=== PATIENT | male | born 1990 | race African-American/Black ===

== ENCOUNTER 2020-01-11 10:41 | Emergency (ER) | payer OTHER ==
[~2020-01-11] VITALS: Ht 180.3 cm; Wt 90.7 kg
--- NOTE | 2020-01-11 11:13 | Emergency Department Note ---
History of Present Illnes History of Present Illness Chief Complaint: Abdominal cramps History of Present Illness This is a 29 year old male. was doing well prior to this. the diarrhea, abdominal cramps, nausea s/p eating seafood food Historian: Patient Arrival Mode: Car History limited by: condition of the patient (normal) Onset (how long ago): day(s) (8) Location: generalized Quality: cramps Radiation: non-radiation Severity: moderate (i max= moderate, i current= ) Onset quality: gradual Duration (how long): day(s) (8) Timing of current episode: intermittent Progression: unchanged Chronicity: new Context: recent illness, recent surgery, recent immobilization, recent travel, trauma/injury, new medications, hx of DVT/PE, non-compliance w/ medications Relieving factors: none Exacerbating factors: none Associated symptoms: nausea/vomiting Treatments prior to arrival: none Past Medical/Family History Physician Review I have reviewed the patient's past medical and family history. Any updates have been documented here. Past Medical History Recent Fever: No Clinical Suspicion of Infectio: No New/Unexplained Change in Ment: No Past Medical History: None Past Surgical History: None Social History Smoking Cessation: Former smoker Counseling Performed: No Any Illegal Drug Use: No TB Exposure/Symptoms: No Physically hurt or threatened: No Family History Family history of heart diseas: No Other Any Pre-Existing Lines (PICC,: No Is patient up to date on immun: No Review of Systems Review of Systems Constitutional: no symptoms EENTM: no symptoms Cardiovascular: no symptoms Respiratory: no symptoms Gastrointestinal: as per HPI, abdominal pain, diarrhea, nausea; constipation, vomiting Genitourinary: no symptoms Musculoskeletal: no symptoms Neurological: no symptoms Psychological: no symptoms Endocrine: no symptoms Hematological/Lymphatic: no symptoms Review of other systems All other systems reviewed and negative. Physical Exam Related Data Allergies: Coded Allergies: No Known Allergies (Unverified , 01/11/20) Triage Vital Signs Vital Signs Date Time Temp Pulse Resp B/P (MAP) Pulse Ox O2 Delivery O2 Flow Rate FiO2 01/11/20 10:48 97.8 67 16 145/95 99 Physical Exam CONSTITUTIONAL Constitutional: well-developed, well-nourished HENT HENT: normocephalic, atraumatic, oropharynx clear/moist, nose normal HENT L/R: left ext ear normal, right ext ear normal EYES Eyes: PERRL, conjunctivae normal NECK Neck: ROM normal PULMONARY Pulmonary: effort normal, breath sounds normal CARDIOVASCULAR Cardiovascular: regular rhythm, heart sounds normal, capillary refill normal, normal rate GASTROINTESTINAL Abdominal: soft, nontender, bowel sounds normal GENITOURINARY Genitourinary: exam deferred SKIN Skin: warm, dry MUSCULOSKELETAL Musculoskeletal: ROM normal NEUROLOGICAL Neurological: alert, oriented x 3, no gross motor or sensory deficits PSYCHOLOGICAL Psychological: mood/affect normal, judgement normal Critical Care Time Subsequent provider I assumed direction of critical care for this patient from another provider of my specialty. Assessment & Plan Assessment & Plan Final Impression: (1) INFECTIOUS GASTROENTERITIS AND COLITIS, UNSPECIFIED (2) OTHER SPECIFIED BACTERIAL FOODBORNE INTOXICATIONS Assessment & Plan rxed zofran, lomotil, cipro, flagyl, levsin. drink plenty of water/electrolytes. f/u with gi. +bland diet Depart Disposition: HOME, SELF-CARE Last Vital Signs Date Time Temp Pulse Resp B/P (MAP) Pulse Ox O2 Delivery O2 Flow Rate FiO2 01/11/20 10:48 97.8 67 16 145/95 99 CHRISTY HEARD January 11, 2020 11:13
== END 2020-01-11 11:30 | disposition home or self-care (01) ==
LOC: ER 10:41
DX: R10.9 Unspecified abdominal pain (principal); A05.9 Bacterial foodborne intoxication, unspecified; A09 Infectious gastroenteritis and colitis, unspecified
CPT/HCPCS: 99282

== ENCOUNTER 2020-05-26 08:38 | Emergency (ER) | payer OTHER ==
[~2020-05-26] VITALS: Ht 180.3 cm; Wt 90.7 kg
--- OUTSIDE RECORDS SUMMARY | 2020-05-26 09:23 | XMS REPORT | Continuity of Care Document ---
Author Author 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 Allergies, Adverse Reactions, Alerts This patient has no known allergies or adverse reactions. Social History Social Habit Start Date Stop Date Quantity Comments Source Sex Assigned At 1990 00:00:00 1990 00:00:00 Male [facility] Medications This patient has no known medications. Vital Signs Vital Name Observation Time Observation Value Comments Source Weight 2020-01-11 10:48:00 200 [lb_av] [facility] BMI (Body Mass Index) 2020-01-11 10:48:00 27.9 kg/m2 [facility] Procedures This patient has no known procedures. Plan of Care Planned Activity Planned Date Details Comments Source Instructions [place] Diet - Adult [facility] Instructions Food Poisoning - Adult [facility] Encounters Start Date/Time End Date/Time Encounter Type Admission Type [facility] Facility Care Department Encounter ID Source 2020-01-11 10:41:00 2020-01-11 11:30:00 Departed Emergency Room [facility] [id number] [facility] Results This patient has no known results.
--- NOTE | 2020-05-26 10:14 | Emergency Department Note ---
History of Present Illnes History of Present Illness Chief Complaint: Abdominal Complaints History of Present Illness This is a 30 year old male with cramping mid lower abd pain X 2week with > flatus and normal BM. Started probiotic on day 3 to 9 of illness which caused him to be constipated. Patient started having normal BM again after stopping probiotic. Diarrhea X 2 episodes this AM described as loose. No melena, no hematachezia. No fever, no chills. No N/V. Mild decrease in appetite. Similar symptom in February - resolved after course of Cipro and Flagyl. Has appointment for UGI and Colonoscopy in 2 weeks. No syncope or lightheadness. Historian: Patient Arrival Mode: Car Onset (how long ago): week(s) (2) Radiation: Reports non-radiation Severity: mild Onset quality: gradual Duration (how long): week(s) (2) Timing of current episode: unable to specify Progression: unable to specify Context: Denies trauma/injury Relieving factors: none Exacerbating factors: none Associated symptoms: Denies confusion, Denies chest pain, Denies cough, Denies diaphoresis, Denies fever/chills, Denies headaches, Denies nausea/vomiting, Denies shortness of breath, Denies syncope, Denies weakness Treatments prior to arrival: none Past Medical/Family History Physician Review I have reviewed the patient's past medical and family history. Any updates have been documented here. Past Medical History Recent Fever: No Clinical Suspicion of Infectio: No New/Unexplained Change in Ment: No Past Medical History: None Past Surgical History: None Social History Smoking Cessation: Current some day smoker Counseling Performed: No Alcohol Use: None Any Illegal Drug Use: No Physically hurt or threatened: No Other Any Pre-Existing Lines (PICC,: No Review of Systems Review of Systems Constitutional: Denies chills, Denies fever EENTM: Denies nose congestion, Denies throat pain Cardiovascular: Denies chest pain, Denies palpitations Respiratory: Denies cough, Denies dyspnea Gastrointestinal: Reports as per HPI, Reports abdominal pain, Reports diarrhea; Denies nausea, Denies vomiting Genitourinary: Denies dysuria, Denies hematuria Musculoskeletal: Denies back pain Integumentary: Denies rash Neurological: Denies headache Endocrine: Denies increased hunger Hematological/Lymphatic: Denies easy bruising Physical Exam Related Data Allergies: Coded Allergies: No Known Allergies (Unverified , 01/11/20) Triage Vital Signs Vital Signs Date Time Temp Pulse Resp B/P (MAP) Pulse Ox O2 Delivery O2 Flow Rate FiO2 05/26/20 08:38 98.7 65 18 150/74 100 Room Air Physical Exam CONSTITUTIONAL Constitutional: Present well-developed, Present well-nourished HENT HENT: Present normocephalic, Present atraumatic, Present mucosae dry, Present nose normal EYES Eyes: Reports PERRL, Reports conjunctivae normal NECK Neck: Present ROM normal PULMONARY Pulmonary: Present effort normal, Present breath sounds normal CARDIOVASCULAR Cardiovascular: Present regular rhythm, Present heart sounds normal, Present capillary refill normal, Present normal rate GASTROINTESTINAL No RLQ tenderness. Negative Patel's, Negative psoas, Negative Illiac Abdominal: Present soft, Present nontender, Present bowel sounds normal GENITOURINARY Genitourinary: Present exam deferred SKIN Skin: Present warm, Present dry MUSCULOSKELETAL Musculoskeletal: Present ROM normal NEUROLOGICAL Neurological: Present alert, Present oriented x 3, Present no gross motor or sensory deficits PSYCHOLOGICAL Psychological: Present mood/affect normal, Present judgement normal Results Laboratory Laboratory comments UA: Neg glu, blood neg, nit neg, le neg, pro trace, ket 15 ml/dl, SG > 1.030 Assessment & Plan Medical Decision Making MDM Patient presented with 2 episodes of diarrhea and cramping pain over suprapubic area. Considered UTI, kidney stone, pyleo, but UA negative for blood and infection. Urine concentrated. Mild dehydration on exam. Patient tolerated PO fluid in ED and did not warrant IV hydration. Similar sx in February treated with Cipro and Flagyl. Will treat today with same as symptoms in February resolved with treatment. Patient has appointment with GI in 2 weeks for scope. Gave strict return precautions. Considered diverticulitis - discharged with Cipro and Flagyl which would treat this. Considered appendicitis - no RLQ tenderness, pain X 2 weeks, no fever, no psoas, no illiac, non- surgical abdomen on exam. No indication for further appy work up at this time. Explained differential dx to patient and gave strict return precautions. Assessment & Plan Final Impression: (1) Volume depletion (2) Dehydration (3) Hypovolemia (4) INFECTIOUS GASTROENTERITIS AND COLITIS, UNSPECIFIED Depart Disposition: HOME, SELF-CARE Last Vital Signs Date Time Temp Pulse Resp B/P (MAP) Pulse Ox O2 Delivery O2 Flow Rate FiO2 05/26/20 08:38 98.7 65 18 150/74 100 Room Air CLAUDY HAMILTON MD May 26, 2020 09:36
== END 2020-05-26 10:03 | disposition home or self-care (01) ==
LOC: FSED 09:16
DX: R10.30 Lower abdominal pain, unspecified (principal); A09 Infectious gastroenteritis and colitis, unspecified; E86.1 Hypovolemia; E86.0 Dehydration; F17.210 Nicotine dependence, cigarettes, uncomplicated
CPT/HCPCS: 81003; 99283

== ENCOUNTER → 2020-06-02 | Outpatient (CLI) | payer OTHER | LOC: US 08:34 | PROVIDERS: ATTEND Internal Medicine Gastroenterology | DX: R10.30 Lower abdominal pain, unspecified (principal) | CPT/HCPCS: 76700 ==

== ENCOUNTER → 2020-06-14 | Day surgery (SDC) | payer OTHER ==
[~2020-06-14] MED LIST: FENTANYL CITRATE/PF 100MCG/2 ML INJ ONE; METOCLOPRAMIDE HCL 10 MG/2ML VIAL ONE; MIDAZOLAM HCL 2 MG/2 ML VIAL ONE; PANTOPRAZOLE 40 MG 10ML VIAL ONE; PROPOFOL IV EMULSION 10 MG/ML 20 ML VIAL ONE
[2020-06-14 11:25] VITALS: BP 120/71
== END | disposition home or self-care (01) ==
LOC: OR 09:52
PROVIDERS: ATTEND Internal Medicine Gastroenterology
DX: K21.9 Gastro-esophageal reflux disease without esophagitis (principal); Z68.27 Body mass index [BMI] 27.0-27.9, adult; F41.9 Anxiety disorder, unspecified; Z01.812 Encounter for preprocedural laboratory examination; Z20.828 Contact with and (suspected) exposure to other viral communicable diseases; K20.90 Esophagitis, unspecified without bleeding; K29.70 Gastritis, unspecified, without bleeding; K25.9 Gastric ulcer, unspecified as acute or chronic, without hemorrhage or perforation
CPT/HCPCS: 43239; C9113; J2704; J2765; U0002; J2250; J3010